=== PATIENT | female | born 1995 | race Hispanic/Latino ===

== ENCOUNTER 2023-09-28 23:33 | Emergency (ER) | payer SELFPAY ==
[~2023-09-28] VITALS: Ht 167.6 cm; Wt 84.8 kg
[2023-09-29] MEDS ORDERED: IBUPROFEN600 MG PO (01:13)
[2023-09-29 01:18] VITALS: BP 137/98; PULSE 82; RESP 18; TEMP 98.4; O2SAT 100
== END 2023-09-29 01:18 | disposition home or self-care (01) ==
LOC: FSED 23:44
DX: S90.32XA Contusion of left foot, initial encounter (principal); X50.1XXA Overexertion from prolonged static or awkward postures, initial encounter; Y93.01 Activity, walking, marching and hiking; Y92.89 Other specified places as the place of occurrence of the external cause
CPT/HCPCS: 99282